=== PATIENT | male | born 1980 | race Caucasian/White ===

== ENCOUNTER 2018-08-18 10:04 | Emergency (ER) | payer OTHER ==
[2018-08-18] MEDS ORDERED: Metoprolol Tartrate 25 MG Tab PO ONE (12:33)
--- NOTE | 2018-08-18 13:34 | EDM.PDOC ---
ED HPI GENERAL MEDICAL PROBLEM - General Chief Complaint: Cardiovascular Problem Stated Complaint: HEART FLUTTER Time Seen by Provider: 08/18/18 11:00 Source of Information: Reports: Patient History Limitations: Reports: No Limitations - History of Present Illness INITIAL COMMENTS - FREE TEXT/NARRATIVE: 38 yo presents with concerns of palpitations Is visiting [place] and has several alcoholic drinks yesterday when he noted palpitations Put on his wifes fit bit and noted HR to be in 120s Reports he had a similar episode in the past after drinking at a [employer] He is otherwise healthy No hx of cardiac disease No chest pain or dyspnea - Related Data Allergies Allergy/AdvReac Type Severity Reaction Status Date / Time No Known Allergies Allergy Verified 08/18/18 10:50 Home Meds: Home Meds Metoprolol Tartrate 25 mg PO BID #20 tablet 08/18/18 [Rx] Past Medical History - Past Surgical History GI Surgical History: Reports: Appendectomy Social & Family History - Tobacco Use Smoking Status *Q: Never Smoker ED ROS GENERAL - Review of Systems Review Of Systems: See Below Constitutional: Reports: No Symptoms HEENT: Reports: No Symptoms Respiratory: Reports: No Symptoms. Denies: Shortness of Breath Cardiovascular: Reports: Palpitations. Denies: Chest Pain Endocrine: Reports: No Symptoms GI/Abdominal: Reports: No Symptoms : Reports: No Symptoms Musculoskeletal: Reports: No Symptoms Skin: Reports: No Symptoms Neurological: Reports: No Symptoms Psychiatric: Reports: No Symptoms Hematologic/Lymphatic: Reports: No Symptoms Immunologic: Reports: No Symptoms ED EXAM, GENERAL - Physical Exam Exam: See Below Exam Limited By: No Limitations General Appearance: Alert, No Apparent Distress Nose: Normal Inspection Throat/Mouth: Normal Inspection Head: Atraumatic, Normocephalic Neck: Normal Inspection Respiratory/Chest: Lungs Clear Cardiovascular: Tachycardia, Irregularly Irregular GI/Abdominal: Soft, Non-Tender Back Exam: Normal Inspection Extremities: Normal Inspection Neurological: Alert, Oriented Psychiatric: Normal Affect, Normal Mood Skin Exam: Warm, Dry EKG INTERPRETATION EKG Date: 08/18/18 Rhythm: A-Fib P-Wave: Absent QRS: Normal Comparison: NA - No Prior EKG EKG Interpretation Comments: a-fib with RVR Course - Vital Signs Last Recorded V/S: Last Vital Signs Temp 36.6 C 08/18/18 10:57 Pulse 103 H 08/18/18 12:37 Resp 17 08/18/18 12:10 BP 132/93 H 08/18/18 12:37 Pulse Ox 94 L 08/18/18 12:10 - Orders/Labs/Meds Orders: Active Orders 24 hr Category Date Time Status EKG Documentation Completion [RC] ASDIRECTED Care 08/18/18 11:35 Active EKG 12 Lead [EK] Stat Ther 08/18/18 11:34 Ordered Meds: Medications Discontinued Medications Generic Name Dose Route Start Last Admin Trade Name Dana PRN Reason Stop Dose Admin Metoprolol Tartrate 25 mg 08/18/18 12:33 08/18/18 12:37 Lopressor PO 08/18/18 12:34 25 mg ONETIME ONE Administration - Re-Assessments/Exams Free Text/Narrative Re-Assessment/Exam: 38 yo who present with new onset atrial fibrillation. In the setting of etoh use, suspect "holiday heart" Reports one similar episode in the past in the setting of alcohol use. He was persistently tachycardic in the 120s. Discussed sedation/cardioversion with patient however I feel that risk/benefit of this makes it not warranted as his fib has a good chance of resolving spontaneously as it has done in the past. He has no co-morbidities therefore does not require anti-coagulation per [id number] Decided to do a trial of rate control with PO metoprolol and this was effective He was discharged with a script for metoprolol tartrate and plan for PCP f/u for repeat EKG I did do a follow-up phone call with Adalid the day following discharge (08/19) and reports HR has been normal on his "fit bit" which is reporting sinus rhythm and he has not had any palpitations. He has not yet taken his metoprolol dose today so we will hold morning dose and follow for recurrent palpitations/ tachycardia and re-instate prn. He will f/u with PCP this week for re-check. 08/19/18 10:20 Departure - Departure Time of Disposition: 13:32 Disposition: Home, Self-Care 01 Clinical Impression: Atrial fibrillation with rapid ventricular response Prescriptions: Metoprolol Tartrate 25 mg PO BID #20 tablet Instructions: Atrial Fibrillation, [id number] Referrals: PCP,None [Primary Care Provider] - Forms: ED Department Discharge Additional Instructions: As discussed, please take the prescribed metoprolol until you follow up with your primary doctor or if your heart rate is persistently normal Call your primary doctor for follow up this week Return to the ER for shortness of breath or dizziness
== END 2018-08-18 14:02 | disposition home or self-care (01) ==
LOC: JP.ED 10:04
DX: I48.91 Unspecified atrial fibrillation (principal)
CPT/HCPCS: 93005; 99284; A9270